=== PATIENT | female | born 1940 | race Caucasian/White ===

== ENCOUNTER 2020-02-09 13:04 | Emergency (ER) | payer MEDICARE, BC | END 2020-02-09 14:05 | disposition home or self-care (01) | LOC: NAV ERS 13:04 | DX: K04.7 Periapical abscess without sinus (principal); K02.9 Dental caries, unspecified; I10 Essential (primary) hypertension; E78.5 Hyperlipidemia, unspecified; F41.9 Anxiety disorder, unspecified; F32.9 Major depressive disorder, single episode, unspecified; Z87.891 Personal history of nicotine dependence; Z79.899 Other long term (current) drug therapy | CPT/HCPCS: 99282 ==

== ENCOUNTER 2020-04-19 12:56 | Emergency (ER) | payer MEDICARE, BC ==
[2020-04-19] MEDS ORDERED: Lidocaine 1% w/Epinephrine 1:100K 30 ML VIAL ONE (13:14)
[2020-04-19] MEDS ORDERED: Sodium Chloride 0.9% 1,000 ML ONE (14:13)
[2020-04-19] MEDS ORDERED: Bacitracin 1 PK ONE (14:41)
--- NOTE | 2020-04-19 14:44 | CT ---
CT BRAIN NONCONTRAST: DATE: 04/19/2020 HISTORY: 79-year-old female status post acute head trauma FINDINGS: There is no evidence of acute intra-axial or extra-axial hemorrhage. There is no midline shift or any other mass effect. There is no extra-axial fluid collection. There is no evidence of obstructive hydrocephalus. Calvarium is intact. There is right upper lateral superficial soft tissue scalp swelli ng containing tiny foci of subcutaneous gas, and skin stanley. IMPRESSION: 1. No acute intracranial findings. 2. Right upper scalp contusion and laceration.
== END 2020-04-19 14:55 | disposition home or self-care (01) ==
LOC: NAV ERS 12:56
DX: S01.01XA Laceration without foreign body of scalp, initial encounter (principal); I10 Essential (primary) hypertension; E78.5 Hyperlipidemia, unspecified; F41.9 Anxiety disorder, unspecified; F32.9 Major depressive disorder, single episode, unspecified; F17.210 Nicotine dependence, cigarettes, uncomplicated; Z79.899 Other long term (current) drug therapy; X58.XXXA Exposure to other specified factors, initial encounter
CPT/HCPCS: 12004; 70450; J2001; J7050

== ENCOUNTER 2022-04-10 12:14 | Emergency (ER) | payer MEDICARE, BC | END 2022-04-10 12:59 | disposition home or self-care (01) | LOC: NAV ERS 12:14 | DX: M25.462 Effusion, left knee (principal); E78.00 Pure hypercholesterolemia, unspecified; I10 Essential (primary) hypertension; Z87.891 Personal history of nicotine dependence; Z79.899 Other long term (current) drug therapy | CPT/HCPCS: 99283 ==

== ENCOUNTER 2024-02-20 13:01 | Outpatient (CLI) | payer MEDICARE ==
[2024-02-20 16:26] LABS: #Basophils 0.2 thou/uL (0.0-0.2); #Eosinphils 0.4 thou/uL (0.0-0.7); #Monocytes 0.7 thou/uL (0.11-0.59); #Neutrophils 3.8 thou/uL (1.40-6.50); %Basophils 2.8 % (0.0-1.0); %Eosinophils 6.1 % (0.0-10.0); %Lymphocytes 16.2 % (21.0-51.0); %Monocytes 12.2 % (0.0-10.0); %Neutrophils 62.6 % (42.0-75.0); Hematocrit 38.9 % (36.0-47.0); Mean Corpuscular HGB CONC 30.9 g/dL (32.0-36.0); Mean Corpuscular Hemoglobin 28.2 pg (27.0-31.0); Mean Corpuscular Volume 91.3 fl (78.0-98.0); Mean Platelet Volume 6.6 fL (7.4-10.4); Platelet Count 293 10x3/uL (130-400); RBC Distribution Width 12.7 % (11.5-14.5); Red Blood Cell (RBC) Count 4.26 mill/uL (4.20-5.40)
[2024-02-20 16:29] LABS: ALT (SGPT) 13 U/L (8-55); AST (SGOT) 16 U/L (5-34); Albumin 4.3 g/dL (3.4-4.8); Alkaline Phosphatase 92 U/L (40-110); Anion Gap 17 mmol/L (10-20); BUN (Urea Nitrogen) 19 mg/dL (9.8-20.1); Bilirubin, Total 0.2 mg/dL (0.2-1.2); Calc. Creatinine Clearance 0 mL/min (70-130); Calcium 9.4 mg/dL (7.8-10.44); Carbon Dioxide 18 mmol/L (23-31); Chloride 107 mmol/L (98-107); Estimated GFR 74; Globulin 3.1 g/dL (2.4-3.5); Glucose 92 mg/dL (83-110); Potassium 4.1 mmol/L (3.5-5.1); Protein, Total 7.4 g/dL (5.8-8.1); Sodium 138 mmol/L (136-145)
== END 2024-02-20 13:02 | disposition home or self-care (01) ==
LOC: NAV CT 13:01
PROVIDERS: ATTEND Neurological Surgery
DX: S06.5X0A Traumatic subdural hemorrhage without loss of consciousness, initial encounter (principal); G93.9 Disorder of brain, unspecified; R90.82 White matter disease, unspecified
CPT/HCPCS: 36415; 70450; 80053; 85025

== ENCOUNTER 2024-05-21 14:16 | Outpatient (CLI) | payer MEDICARE | END 2024-05-21 14:17 | disposition home or self-care (01) | LOC: NAV CT 14:16 | PROVIDERS: ATTEND Nurse Practitioner Family | DX: M79.642 Pain in left hand (principal); M18.12 Unilateral primary osteoarthritis of first carpometacarpal joint, left hand | CPT/HCPCS: 70470 ==

== ENCOUNTER 2024-05-23 09:04 | Outpatient (CLI) | payer MEDICARE ==
[~2024-05-23 09:04] MED LIST: Iopamidol 370 76% 100 ML VIAL ONE
== END 2024-05-23 09:05 | disposition home or self-care (01) ==
LOC: NAV CT 09:04
PROVIDERS: ATTEND Nurse Practitioner Family
DX: R51.9 Headache, unspecified (principal); R47.01 Aphasia; Z86.79 Personal history of other diseases of the circulatory system; R90.82 White matter disease, unspecified
CPT/HCPCS: 70470; Q9967

== ENCOUNTER 2025-04-08 10:45 | Emergency (ER) | payer MEDICARE ==
[2025-04-08] MEDS ORDERED: Cephalexin 500 MG CAP ONE (11:06)
== END 2025-04-08 11:14 | disposition home or self-care (01) ==
LOC: NAV ERS 10:45
DX: S60.362A Insect bite (nonvenomous) of left thumb, initial encounter (principal); L03.012 Cellulitis of left finger; I10 Essential (primary) hypertension; I25.10 Atherosclerotic heart disease of native coronary artery without angina pectoris; E78.00 Pure hypercholesterolemia, unspecified; Z95.1 Presence of aortocoronary bypass graft; Z87.891 Personal history of nicotine dependence; Z79.899 Other long term (current) drug therapy; W57.XXXA Bitten or stung by nonvenomous insect and other nonvenomous arthropods, initial encounter
CPT/HCPCS: 99282